=== PATIENT | female | born 1940 | race Caucasian/White ===

== ENCOUNTER 2017-05-15 08:21 | Day surgery (SDC) | payer MEDICARE, OTHER ==
[~2017-05-15 08:21] MED LIST: Lactated Ringers 1,000 ML IV SCH; Lidocaine 1%/Sod Bicarbonate in NS 8.4% 1 ML Syringe PRN; Sodium Chloride 0.9% 10 ML Syringe FLUSH PRN
[2017-05-15] MEDS ORDERED: Lidocaine 1% with EPINEPHrine 1:100,000 20 ML MDV ONE (08:40)
[2017-05-15] MEDS ORDERED: Sodium Chloride 0.9% 50 ML SDV ONE (08:40)
[2017-05-15 09:23] VITALS: BP 142/67
--- NOTE | 2017-05-15 09:44 | PCM.SN ---
- Free Text/Narrative Note: 05-15-17 An EKG was ordered on this patient yesterday because did not have one on her chart. Patient has a history of HTN, currently on amlodipine and lisinopril. Patient is not on a beta inge and has no evidence of a cardiac workup. When the EKG was completed it revealed bigeminy PVC's with a rate of 78, borderline left axis deviation, and low voltage in her precordial leads. Patient also started complaining of bilateral neck pain about 1/2 hour after the EKG was obtained. EKG was shown to Dr. Isaac for her opinion and she stressed the patient needed a cardiac workup. Dr. Salazar then called and updated and it was concluded that the patient should receive a cardiac workup before the procedure beings it was an elective procedure. Dr Salazar spoke wit the patient and family and canceled the case and we transferred her to ED for further evaluation. Russell Charlton [employer]NA[employer]
== END 2017-05-15 09:35 | disposition other institution (70) ==
LOC: JD.SDS 08:21
PROVIDERS: ATTEND Obstetrics & Gynecology
DX: N81.89 Other female genital prolapse (principal); N95.2 Postmenopausal atrophic vaginitis; N39.3 Stress incontinence (female) (male); Z53.8 Procedure and treatment not carried out for other reasons; I10 Essential (primary) hypertension; E03.9 Hypothyroidism, unspecified; Z79.899 Other long term (current) drug therapy; Z98.890 Other specified postprocedural states; Z90.710 Acquired absence of both cervix and uterus; M54.2 Cervicalgia; I49.1 Atrial premature depolarization; E11.9 Type 2 diabetes mellitus without complications
CPT/HCPCS: 36415; 71010; 80053; 83735; 84484; 85025; 93005; 99285; J7120; 99284

== ENCOUNTER 2017-05-15 09:39 | Emergency (ER) | payer MEDICARE, OTHER ==
--- NOTE | 2017-05-15 11:02 | CR ---
Chest: Frontal view of the chest was obtained. Comparison: No previous study. Heart size is normal. Mild tortuosity of the thoracic aorta is seen. Lungs are clear with no acute infiltrates. Bony structures are osteopenic. Impression: 1. Nothing acute is identified on frontal chest x-ray. Diagnostic code #1
--- NOTE | 2017-05-15 11:19 | EDM.PDOC ---
ED HPI GENERAL MEDICAL PROBLEM - General Chief Complaint: Cardiovascular Problem Stated Complaint: SENT FROM DAY SURGERY Time Seen by Provider: 05/15/17 10:11 Source of Information: Reports: Patient History Limitations: Reports: Altered Mental Status - History of Present Illness INITIAL COMMENTS - FREE TEXT/NARRATIVE: The patient is a 77-year-old female brought from [facility] area today for episode of heart rate of 30. The patient has a history of dementia and hypertension. She was here today to have a surgical procedure for vaginal prolapse. However, in the preop area she was noted to have a heart rate of 30. The patient complained of some mild neck pain at that time but had no additional complaint. She did not lose consciousness. EKG completed at that time showed bigeminy with no other abnormality other than a QTC of 500. The heart rate at that time was 78 but in a bigeminy pattern and a heart rate that was in the 30s. Patient was brought to the emergency department for further evaluation. She states she feels totally fine now. Denies recent illness. No vomiting or diarrhea. No fever , cough, chest pain, shortness breath, lightheadedness, or syncope. No lower extremity pain or swelling. She takes lisinopril and amlodipine but no additional medications for blood pressure. No beta inge. - Related Data Allergies Allergy/AdvReac Type Severity Reaction Status Date / Time No Known Allergies Allergy Verified 05/15/17 09:48 Home Meds: Home Meds Estradiol [Vagifem] 10 mcg VAG ASDIRECTED 05/14/17 [History] Levothyroxine Sodium [Levoxyl] 75 mcg PO DAILY 05/14/17 [History] Lisinopril [Prinivil] 40 mg PO DAILY 05/14/17 [History] Memantine [Namenda] 5 mg PO BID 05/14/17 [History] amLODIPine Besylate [Amlodipine Besylate] 5 mg PO DAILY 05/14/17 [History] metFORMIN HCl [Metformin HCl] 250 mg PO DAILY 05/15/17 [History] Past Medical History HEENT History: Reports: Impaired Vision Cardiovascular History: Reports: Hypertension Respiratory History: Reports: None Genitourinary History: Reports: Urinary Incontinence, Other (See Below) Other Genitourinary History: pelvic organ prolapse, cystocele [employer] History: Reports: Musculoskeletal History: Reports: None Neurological History: Reports: Other (See Below) Other Neuro History: dementia Psychiatric History: Reports: Anxiety, Dementia Endocrine/Metabolic History: Reports: Diabetes, Type II, Hypothyroidism Hematologic History: Reports: None Immunologic History: Reports: None Oncologic (Cancer) History: Reports: None Dermatologic History: Reports: None - Past Surgical History Head Surgeries/Procedures: Reports: None HEENT Surgical History: Reports: Tonsillectomy GI Surgical History: Reports: Colonoscopy, EGD Female Surgical History: Reports: Hysterectomy, Other (See Below) Other Female Surgeries/Procedures: A&P repair Social & Family History - Family History Family Medical History: Noncontributory - Tobacco Use Smoking Status *Q: Never Smoker Second Hand Smoke Exposure: No - Caffeine Use Caffeine Use: Reports: Coffee Other Caffeine Use: daily - Recreational Drug Use Recreational Drug Use: No Drug Use in Last 12 Months: No ED ROS GENERAL - Review of Systems Review Of Systems: See Below Constitutional: Denies: Fever HEENT: Reports: No Symptoms Respiratory: Denies: Shortness of Breath, Cough Cardiovascular: Denies: Chest Pain Endocrine: Denies: Fatigue GI/Abdominal: Denies: Abdominal Pain, Diarrhea, Vomiting Musculoskeletal: Reports: No Symptoms Skin: Reports: No Symptoms Neurological: Reports: No Symptoms Psychiatric: Reports: No Symptoms Hematologic/Lymphatic: Reports: No Symptoms Immunologic: Reports: No Symptoms ED EXAM, GENERAL - Physical Exam Exam: See Below Exam Limited By: No Limitations General Appearance: Alert, WD/WN, No Apparent Distress Eye Exam: Bilateral Eye: Normal Inspection Ears: Normal External Exam Nose: Normal Inspection Throat/Mouth: Normal Inspection, Normal Voice, No Airway Compromise Head: Atraumatic, Normocephalic Neck: Normal Inspection, Supple, Non-Tender, Full Range of Motion Respiratory/Chest: No Respiratory Distress, Lungs Clear, Normal Breath Sounds, Chest Non-Tender Cardiovascular: Normal Peripheral Pulses, Regular Rate, Rhythm, No Edema, No Murmur Peripheral Pulses: 2+: Femoral (L) GI/Abdominal: Soft, Non-Tender, No Distention. No: Rebound Back Exam: Normal Inspection Extremities: Normal Inspection Neurological: Alert, No Motor/Sensory Deficits Psychiatric: Normal Affect, Normal Mood Skin Exam: Warm, Dry, Intact, Normal Color, No Rash Course - Vital Signs Last Recorded V/S: Last Vital Signs Temp 36.8 C 05/15/17 09:43 Pulse 62 05/15/17 11:32 Resp 20 05/15/17 11:32 BP 134/68 05/15/17 11:32 Pulse Ox 99 05/15/17 11:32 - Orders/Labs/Meds Orders: Active Orders 24 hr Category Date Time Status EKG 12 Lead [EKG Documentation Completion] [RC] ROUTINE Care 05/15/17 11:00 Active Labs: Laboratory Tests 05/15/17 05/15/17 Range/Units 09:50 09:50 WBC 4.88 (3.98-10.04) K/mm3 RBC 3.74 L (3.98-5.22) M/mm3 Hgb 12.8 (11.2-15.7) gm/L Hct 37.8 (34.1-44.9) % MCV 101.1 H (79.4-94.8) fl MCH 34.2 H (25.6-32.2) pg MCHC 33.9 (32.2-35.5) g/dl RDW Std Deviation 44.4 (36.4-46.3) fL Plt Count 259 (182-369) K/mm3 MPV 9.0 L (9.4-12.3) fl Neut % (Auto) 71.3 H (34.0-71.1) % Lymph % (Auto) 19.7 (19.3-51.7) % [place] % (Auto) 6.8 (4.7-12.5) % Eos % (Auto) 1.4 (0.7-5.8) Baso % (Auto) 0.6 (0.1-1.2) % Neut # (Auto) 3.48 (1.56-6.13) K/mm3 Lymph # (Auto) 0.96 L (1.18-3.74) K/mm3 [place] # (Auto) 0.33 (0.24-0.36) K/mm3 Eos # (Auto) 0.07 (0.04-0.36) K/mm3 Baso # (Auto) 0.03 (0.01-0.08) K/mm3 Sodium 140 (136-145) mEq/L Potassium 3.8 (3.5-5.1) mEq/L Chloride 106 (98-107) mEq/L Carbon Dioxide 24 (21-32) mEq/L Anion Gap 13.8 (5-15) BUN 12 (7-18) mg/dL Creatinine 1.1 H (0.55-1.02) mg/dL Est Cr Clr Drug Dosing 37.93 mL/min Estimated GFR (MDRD) 48 (>60) mL/min BUN/Creatinine Ratio 10.9 L (14-18) Glucose 115 (83-115) mg/dL Calcium 9.2 (8.5-10.1) mg/dL Magnesium 2.0 (1.8-2.4) mg/dl Total Bilirubin 0.5 (0.2-1.0) mg/dL AST 20 (15-37) U/L ALT 24 (14-59) U/L Alkaline Phosphatase 80 (46-116) U/L Troponin I < 0.017 (0.00-0.056) ng/mL Total Protein 7.2 (6.4-8.2) g/dl Albumin 3.8 (3.4-5.0) g/dl Globulin 3.4 gm/dL Albumin/Globulin Ratio 1.1 (1-2) - Re-Assessments/Exams Free Text/Narrative Re-Assessment/Exam: 05/15/17 11:29 At the time of my evaluation, the patient was in normal sinus rhythm with a heart rate in the 60s. She was monitored in the emergency department with no change in this pattern. She is completely asymptomatic. Her electrolytes are normal. I recommended consultation with a software engineering analyst and admission here versus possible transfer to [facility] for further cardiac evaluation. However the patient does have a history of advanced dementia. She is here with her and her daughter. The patient and her family all agree that the patient would be better served by being allowed to go home. They understand the risk of cardiac arrhythmia that could result in heart attack, syncope, or . They would still prefer to go home. I recommended that they follow up with a primary care doctor and explained the cardiac clearance will be necessary if they would like to reattempt a surgical procedure. Family and patient understood. 05/15/17 12:57 EKG showed normal sinus rhythm, no ectopy, normal intervals, no ST or T-wave abnormality. Chest x-ray shows normal cardiac silhouette, no pneumothorax or infiltrate, normal portable chest x-ray. Labs were within normal limits. Departure - Departure Time of Disposition: : Disposition: Home, Self-Care 01 Clinical Impression: Bradycardia, Premature contractions, supraventricular Instructions: Bradycardia Referrals: Rea Valera NP [Primary Care Provider] - Forms: ED Department Discharge Additional Instructions: 1. Follow up with your primary care provider for further care 2. Your primary care doctor will need to arrange pre-operative clearance by doing further heart studies if you are going to have a surgery 3. Return to the Emergency Department if you have chest pain, shortness of breath, passing out episodes, or any other concerning symptoms - My Orders Last 24 Hours: My Active Orders 05/15/17 11:00 EKG 12 Lead [EKG Documentation Completion] [RC] ROUTINE - Assessment/Plan Last 24 Hours: My Active Orders 05/15/17 11:00 EKG 12 Lead [EKG Documentation Completion] [RC] ROUTINE
[2017-05-15 11:34] VITALS: BP 134/68
== END 2017-05-15 11:32 | disposition home or self-care (01) ==
LOC: JD.ED 09:39
DX: I49.1 Atrial premature depolarization (principal); I10 Essential (primary) hypertension; E11.9 Type 2 diabetes mellitus without complications; E03.9 Hypothyroidism, unspecified; Z79.899 Other long term (current) drug therapy; Z79.84 Long term (current) use of oral hypoglycemic drugs; Z90.710 Acquired absence of both cervix and uterus; Z98.890 Other specified postprocedural states
CPT/HCPCS: 36415; 71010; 71010-26; 80053; 83735; 84484; 85025; 93005; 99284; 99285-25

== ENCOUNTER 2023-11-18 17:44 | Emergency (ER) | payer MEDICARE, OTHER ==
[2023-11-18 18:30] VITALS: PULSE 73
[2023-11-18] MEDS ORDERED: Diphtheria,Pertussis(Acell),Tetanus Vaccine 0.5 ML Syringe IM ONE (19:40)
[2023-11-18 20:07] VITALS: BP 147/82
== END 2023-11-18 20:00 | disposition home or self-care (01) ==
LOC: JD.ED 17:44
DX: S01.01XA Laceration without foreign body of scalp, initial encounter (principal); I10 Essential (primary) hypertension; E11.9 Type 2 diabetes mellitus without complications; E03.9 Hypothyroidism, unspecified; Z79.84 Long term (current) use of oral hypoglycemic drugs; Z79.899 Other long term (current) drug therapy; W01.0XXA Fall on same level from slipping, tripping and stumbling without subsequent striking against object, initial encounter
CPT/HCPCS: 12001; 90471; 99282-25